=== PATIENT | male | born 1990 | race Caucasian/White ===

== ENCOUNTER 2016-04-03 02:37 | Emergency (ER) | payer BC, OTHER ==
[~2016-04-03] VITALS: Ht 182.9 cm; Wt 71.3 kg
[2016-04-03] MEDS ORDERED: HYDROcodone/APAP 5 MG/325 MG (NORCO) TAB PO ONE (03:00)
[2016-04-03] MEDS ORDERED: IBUPROFEN 200 MG (MOTRIN) TAB PO ONE (03:05)
--- NOTE | 2016-04-03 03:59 | NUR ---
DR FREIRE PUT CALL IN TO DR OROURKE ORTHO HAND DOCTOR WITH [facility]
--- NOTE | 2016-04-03 04:02 | NUR ---
DR FREIRE CONSULTED WITH DR OROURKE AND HE WILL SEE HIM ON MON.
--- NOTE | 2016-04-03 04:20 | NUR ---
PATIENTS FRIEND/RIDE VIKAS HERE TO GET PATIENT AND HE WAS VERBALLY LOUD AND CUSSING WHEN RN ASKED HIM TO PLEASE KEEP NOISE DOWN VIKAS SAID HE DIDN'T CARE EXPLAINED WE HAD OTHER PATIENTS IN HERE AND A CHILD HE DID QUIET DOWN AND SAID HE WAS JUST SLEEPY AND WANTS TO GET HOME.
[2016-04-03] MEDS ORDERED: ED- HYDROcodone/ACETAMINOPHEN 5MG/325MG (NORCO) 6 TABLETS/BTL PO ONE ×2 (04:25)
[2016-04-03 04:37] VITALS: BP 115/79
--- NOTE | 2016-04-03 05:15 | NUR ---
FAXED FACE SHEET TO DR Katarzyna BOWEN FOR F/U TX
== END 2016-04-03 04:58 | disposition home or self-care (01) ==
LOC: ED 02:44
DX: S60.511A Abrasion of right hand, initial encounter (principal); S62.324A Displaced fracture of shaft of fourth metacarpal bone, right hand, initial encounter for closed fracture; W22.09XA Striking against other stationary object, initial encounter; Y92.410 Unspecified street and highway as the place of occurrence of the external cause
CPT/HCPCS: 29125; 73130; 99283